=== PATIENT | male | born 1945 | race Hispanic/Latino ===

== ENCOUNTER 2018-03-15 10:59 | Emergency (ER) | payer OTHER ==
--- NOTE | 2018-03-15 14:36 | RAD REPORT ---
EXAM DESCRIPTION: RAD - Chest Pa And Lat (2 Views) - 03/15/2018 2:18 pm CLINICAL HISTORY: Cough, sore throat COMPARISON: None. TECHNIQUE: PA and lateral views of the chest were obtained. FINDINGS: The lungs are clear. No failure or volume overload. Minimal prominence of the lung markin gs believed to be baseline. Heart size is upper normal. No vascular engorgement. No pleural effusion or pneumothorax seen. Minimal thoracic degenerative change present. No acute bone finding. No aortic abnormality. IMPRESSION: No acute cardiopulmonary process.
[2018-03-15 15:06] LABS: Absolute Lymphocytes (CBC) 0.7 K/uL (0.7-4.9); Absolute Monocytes 0.7 K/uL (0.1-1.3); Basophils % 0.6 % (0-1.3); Eosinophils % 1.4 % (0-4.4); Hematocrit 34.3 % (39.6-49.0); Lymphocytes % 8.9 % (15.3-44.8); MCH 28.1 pg (27.0-35.0); MCV 85.4 fL (80-100); MPV 9.3 fL (7.6-11.3); Monocytes % 8.9 % (3.3-12.3); RBC Red Blood Cell Count 4.02 M/uL (4.33-5.43)
[2018-03-15 15:14] LABS: Potassium 4.1 mmol/L (3.5-5.1)
--- NOTE | 2018-03-15 15:45 | ER ---
Nurse's Notes [facility] Name: Candy Keller Age: 72 yrs Sex: Male : 1945 Arrival Date: 03/15/2018 Time: 11:00 Bed 15 Private MD: Out, [facility] Diagnosis: Fever presenting with conditions classified elsewhere;Acute bronchitis Presentation: 03/15 11:25 Presenting complaint: Patient states: " I have had a cough and sore throat since yesterday." Pt denies N/V/D or fever. Transition of care: patient was not received from another setting of care. Onset of symptoms was March 15, 2018. Risk Assessment: Do you want to hurt yourself or someone else? Patient reports no desire to harm self or others. Initial Sepsis Screen: Does the patient meet any 2 criteria? No. Patient's initial sepsis screen is negative. Does the patient have a suspected source of infection? No. Patient's initial sepsis screen is negative. Care prior to arrival: None. 11:25 Method Of Arrival: Ambulatory ph 11:25 Acuity: GARDENIA 4 ph Historical: - Allergies: 11:28 No Known Allergies; ph - PMHx: 11:28 Diabetes - NIDDM; Hyperlipidemia; Hypertension; Irregular heart rate; ph - PSHx: 11:28 None; ph - Immunization history:: Adult Immunizations up to date. - Social history:: Smoking status: Patient/guardian denies using tobacco. - Ebola Screening: : Patient negative for fever greater than or equal to 101.5 degrees Fahrenheit, and additional compatible Ebola Virus Disease symptoms. Screenin:25 Abuse screen: Denies threats or abuse. Nutritional screening: No deficits noted. rb1 Tuberculosis screening: No symptoms or risk factors identified. Fall Risk None identified. Assessment: 13:25 General: Appears in no apparent distress. comfortable, Behavior is calm, cooperative. rb1 General: Denies fever. Pain: Complains of pain in throat Pain currently is 6 out of 10 on a pain scale. Neuro: Level of Consciousness is awake, alert, obeys commands, Oriented to person, place, time, situation. Cardiovascular: Capillary refill < 3 seconds is brisk in bilateral fingers. Respiratory: Reports cough that is Airway is patent Respiratory effort is even, unlabored, Respiratory pattern is regular, symmetrical. GI: No signs and/or symptoms were reported involving the gastrointestinal system. : No signs and/or symptoms were reported regarding the genitourinary system. Derm: Skin is dry, Skin is normal, Skin temperature is warm. 14:25 Reassessment: Patient appears in no apparent distress at this time. No changes from rb1 previously documented assessment. 15:25 Reassessment: Patient appears in no apparent distress at this time. Patient and/or rb1 family updated on plan of care and expected duration. Pain level reassessed. Patient is alert, oriented x 3, equal unlabored respirations, skin warm/dry/pink. at bedside. 16:00 Reassessment: Discharge pending due to IV fluids infusing. rb1 16:47 Reassessment: Patient appears in no apparent distress at this time. Patient and/or rb1 family updated on plan of care and expected duration. Pain level reassessed. Patient is alert, oriented x 3, equal unlabored respirations, skin warm/dry/pink. IV fluids still infusing. 17:05 Reassessment: Patient appears in no apparent distress at this time. No changes from rb1 previously documented assessment. Vital Signs: 11:27 BP 137 / 53; Pulse 74; Resp 18; Temp 98.2; Pulse Ox 97% on R/A; Weight 77.11 kg; ph 13:30 BP 151 / 65; Pulse 63; Resp 17; Pulse Ox 100% ; rb1 14:30 BP 144 / 63; Pulse 59; Resp 17; Pulse Ox 99% on R/A; rb1 15:30 BP 150 / 69; Pulse 62; Resp 18; Pulse Ox 98% on R/A; rb1 16:30 BP 154 / 73; Pulse 62; Resp 17; Pulse Ox 99% on R/A; rb1 17:05 BP 144 / 73; Pulse 70; Resp 17; Pulse Ox 98% on R/A; rb1 ED Course: 11:00 Patient arrived in ED. sb2 11:00 Out, Town is Private Physician. sb2 11:26 Triage completed. ph 11:28 Arm band placed on Patient placed in waiting room, Patient notified of wait time. ph 13:24 Daniel Nieto MD is Attending Physician. gs 13:25 Patient has correct armband on for positive identification. Bed in low position. Call rb1 light in reach. Side rails up X 1. Pulse ox on. NIBP on. 13:40 Inserted saline lock: 22 gauge in right antecubital area, using aseptic technique. rb1 Blood collected. 13:57 Caren Barrett, RN is Primary Nurse. 14:13 X-ray completed. Patient tolerated procedure well. Patient moved back from radiology. jb2 14:14 XRAY Chest Pa And Lat (2 Views) In Process Unspecified. EDMS 17:05 No provider procedures requiring assistance completed. IV discontinued, intact, rb1 bleeding controlled, No redness/swelling at site. Pressure dressing applied. Administered Medications: 16:00 Drug: NS 0.9% 1000 ml Route: IV; Rate: 1 bolus; Site: right antecubital; rb1 17:05 Follow up: IV Status: Completed infusion rb1 Outcome: 15:44 Discharge ordered by . 17:05 Discharged to home ambulatory, with family. rb1 17:05 Condition: stable 17:05 Discharge instructions given to patient, Instructed on discharge instructions, follow up and referral plans. medication usage, Demonstrated understanding of instructions, follow-up care, medications, Prescriptions given X 2. 17:15 Patient left the ED. rb1 Signatures: Dispatcher [employer] EDSC Valetnino Jacinto jb2 Caren Barrett, Soni Pierre RN, RN RN Juana Valle RN RN rb1 Daniel Nieto MD MD Niyah Meyers sb2
--- NOTE | 2018-03-15 15:45 | EDPHYS ---
Physician Documentation [facility] Name: Candy Keller Age: 72 yrs Sex: Male : 1945 Arrival Date: 03/15/2018 Time: 11:00 Bed 15 Private MD: Out, [facility] ED Physician Daniel Nieto HPI: 03/15 16:13 This 72 yrs old Male presents to ER via Ambulatory with complaints of Flu gs Symptoms. 16:13 Onset: The symptoms/episode began/occurred 2 day(s) ago. Modifying factors: there are gs no obvious modifying factors. Associated signs and symptoms: Pertinent positives: chills, cough, myalgias. Severity of symptoms: At their worst the symptoms were moderate in the emergency department the symptoms are unchanged. The patient has experienced similar episodes in the past, a few times. The patient has not recently seen a physician. Historical: - Allergies: 11:28 No Known Allergies; ph - PMHx: 11:28 Diabetes - NIDDM; Hyperlipidemia; Hypertension; Irregular heart rate; ph - PSHx: :28 None; ph - Immunization history:: Adult Immunizations up to date. - Social history:: Smoking status: Patient/guardian denies using tobacco. - Ebola Screening: : Patient negative for fever greater than or equal to 101.5 degrees Fahrenheit, and additional compatible Ebola Virus Disease symptoms. ROS: 16:13 All other systems are negative. gs Exam: 16:13 Head/Face: Normocephalic, atraumatic. Eyes: Pupils equal round and reactive to light, gs extra-ocular motions intact. Lids and lashes normal. Conjunctiva and sclera are non-icteric and not injected. Cornea within normal limits. Periorbital areas with no swelling, redness, or edema. ENT: Nares patent. No nasal discharge, no septal abnormalities noted. Tympanic membranes are normal and external auditory canals are clear. Oropharynx with no redness, swelling, or masses, exudates, or evidence of obstruction, uvula midline. Mucous membranes moist. Neck: Trachea midline, no thyromegaly or masses palpated, and no cervical lymphadenopathy. Supple, full range of motion without nuchal rigidity, or vertebral point tenderness. No Meningismus. Chest/axilla: Normal chest wall appearance and motion. Nontender with no deformity. No lesions are appreciated. Cardiovascular: Regular rate and rhythm with a normal S1 and S2. No gallops, murmurs, or rubs. Normal PMI, no JVD. No pulse deficits. Abdomen/GI: Soft, non-tender, with normal bowel sounds. No distension or tympany. No guarding or rebound. No evidence of tenderness throughout. Back: No spinal tenderness. No costovertebral tenderness. Full range of motion. Skin: Warm, dry with normal turgor. Normal color with no rashes, no lesions, and no evidence of cellulitis. MS/ Extremity: Pulses equal, no cyanosis. Neurovascular intact. Full, normal range of motion. Neuro: Awake and alert, GCS 15, oriented to person, place, time, and situation. Cranial nerves II-XII grossly intact. Motor strength 5/5 in all extremities. Sensory grossly intact. Cerebellar exam normal. Normal gait. 16:13 Constitutional: The patient appears in no acute distress, alert, awake, non-toxic. 16:13 Respiratory: the patient does not display signs of respiratory distress, Respirations: normal, Breath sounds: decreased breath sounds, that are mild, are located in both bases. Vital Signs: 11:27 BP 137 / 53; Pulse 74; Resp 18; Temp 98.2; Pulse Ox 97% on R/A; Weight 77.11 kg; ph 13:30 BP 151 / 65; Pulse 63; Resp 17; Pulse Ox 100% ; rb1 14:30 BP 144 / 63; Pulse 59; Resp 17; Pulse Ox 99% on R/A; rb1 15:30 BP 150 / 69; Pulse 62; Resp 18; Pulse Ox 98% on R/A; rb1 16:30 BP 154 / 73; Pulse 62; Resp 17; Pulse Ox 99% on R/A; rb1 17:05 BP 144 / 73; Pulse 70; Resp 17; Pulse Ox 98% on R/A; rb1 MDM: 13:55 Patient medically screened. gs 16:13 Differential diagnosis: viral Infection, bacterial infection, URI, pneumonia. Data gs reviewed: vital signs, nurses notes. Data reviewed: lab test result(s), radiologic studies. Counseling: I had a detailed discussion with the patient and/or guardian regarding: the historical points, exam findings, and any diagnostic results supporting the discharge/admit diagnosis, lab results, radiology results, the need for outpatient follow up. Response to treatment: the patient's symptoms have markedly improved after treatment, and as a result, I will discharge patient. 03/15 13:57 Order name: Flu; Complete Time: 15:05 03/15 13:57 Order name: CBC with Diff; Complete Time: 15:31 03/15 13:57 Order name: XRAY Chest Pa And Lat (2 Views); Complete Time: 15:05 03/15 13:57 Order name: Basic Metabolic Panel; Complete Time: 15:31 Administered Medications: 16:00 Drug: NS 0.9% 1000 ml Route: IV; Rate: 1 bolus; Site: right antecubital; rb1 17:05 Follow up: IV Status: Completed infusion rb1 Disposition: 03/15/18 15:44 Discharged to Home. Impression: Fever presenting with conditions classified elsewhere, Acute bronchitis. - Condition is Stable. - Discharge Instructions: Acute Bronchitis, Adult, Fever, Adult. - Prescriptions for Albuterol Sulfate 90 mcg/actuation - inhale 1-2 puff by INHALATION route every 4-6 hours; 1 Inhaler. Guaifenesin AC 10- 100 mg/5 mL Oral Liquid - take 10 milliliters by ORAL route every 4 hours As needed; 120 milliliter. - Medication Reconciliation Form, Thank You Letter, Antibiotic Education, Prescription Opioid Use form. - Follow up: Private Physician; When: 2 - 3 days; Reason: Re-evaluation by your physician. Signatures: Dispatcher [employer] Soni Eldridge RN RN ph Barber, Rebecca, RN RN rb1 Daniel Nieto MD MD Corrections: (The following items were deleted from the chart) 17:15 15:44 03/15/2018 15:44 Discharged to Home. Impression: Fever presenting with conditions rb1 classified elsewhere; Acute bronchitis. Condition is Stable. Forms are Medication Reconciliation Form, Thank You Letter, Antibiotic Education, Prescription Opioid Use. Follow up: Private Physician; When: 2 - 3 days; Reason: Re-evaluation by your physician.
[2018-03-15] MEDS ORDERED: NA CHLORIDE 0.9% 1,000 ML ONE (16:05)
== END 2018-03-15 17:15 | disposition home or self-care (01) ==
LOC: ER 10:59
DX: J20.9 Acute bronchitis, unspecified (principal); I10 Essential (primary) hypertension
CPT/HCPCS: 36415; 71046; 80048; 85025; 87804 ×2; 96360; 99284; J7030

== ENCOUNTER 2019-07-19 12:07 | Observation (INO) | payer OTHER ==
--- OUTSIDE RECORDS SUMMARY | 2019-07-19 12:09 | XMS REPORT ---
:1945 [facility] Address [address] [place] [address] Dr. Blanca [address] [place] [id number] Care Team Providers Name Role Phone Unavailable Unavailable Unavailable Problems This patient has no known problems. Allergies, Adverse Reactions, Alerts This patient has no known allergies or adverse reactions. Medications This patient has no known medications. Encounters Start End Encounter Admission Attending Care Care Encounter Date/Time Date/Time Type Type Clinicians Facility Department ID 2019-02-09 2019-02-09 Outpatient FANNJesús [facility] [id number] 14:43:00 14:43:00
--- OUTSIDE RECORDS SUMMARY | 2019-07-19 12:09 | XMS REPORT | Summary of Care ---
:1945 Author Name Stacy Byers M.A. Address [place] Physicians Unavailable , Care Team Providers Name Role Phone TY GOYAL M.D. Unavailable Unavailable HANNAH MONREAL, ELSY JEAN BAPTISTE Unavailable Unavailable Unavailable Unavailable Unavailable Functional Status Name Dates Details Functional status health issues are not documented Status: Name Dates Details Cognitive status health issues are not documented Status: Problems Name Dates Details Arthralgia of left knee (719.46, M25.562) Status: Active Osteoarthritis of spine with radiculopathy, lumbar region (721.3, M47.26) Status: Active Chronic pelvic pain in male (789.09, R10.2) Status: Active T12 compression fracture (805.2, S22.080A) Status: Active Medications Name Dates Details Meloxicam 15 MG Oral Tablet TAKE 1 TABLET DAILY WITH FOOD. Quantity: 1 Refills: 5 TY GOYAL M.D. Start : 02-Dec-2017 Active 30 Tablet Bottle Gabapentin 300 MG Oral Capsule TAKE 1 CAPSULE 3 TIMES DAILY Quantity: 90 Refills: 3 TY GOYAL M.D. Start : 01-Apr-2018 Active Venlafaxine HCl ER 37.5 MG Oral Capsule Extended Release 24 Hour TAKE 1 CAPSULE AT BEDTIME FOR 2 WEEKS ; 2 CAPSULES AT BEDTIME 2 WEEKS Quantity: 42 Refills: 0 TY GOYAL M.D. Start : 17-Jun-2018 Active Allergies and Adverse Reactions Name Dates Details Allergy history not documented Status: Procedures Procedure Dates Details MRI Pelvis without contrast [id number] Date: 17-Jun-2018 Immunization Name Dates Details Immunizations not documented Social History Name Dates Details Unknown if ever smoked Vital Signs Date Test Result Details No Known Vitals to report Results Date Description Value Details Results not documented Plan of Care Name Dates Details Planned Observations MRI Pelvis without contrast [id number] On: 17-Jun-2018 Intent Planned Goals not documented Interventions Provided Medication ChangesVenlafaxine HCl ER 37.5 MG Oral Capsule Extended Release 24 Hour - StartSuppliesBrace; To Be Done: 16 Jun 2018PlanPatient Education/ Instructions: Reassurance Counseling Provided. MRI report reviewed and finding discussed with patient and family. Orders: Medications:. D/C Gabapentin and add Effexor. MRI PELVIS MEDICALLY NECESSARY DUE TO RADICULAR SYMPTOMS AND HX OF PELVIC FX. Rx for new lumbar corset given. Follow Up: Return to the clinic after imaging study completed or as needed. Instructions Name Dates Details Instructions not documented Encounters Appointment; TY GOYAL M.D. On: 02-Dec-2017 10:00 Encounter Diagnosis: Problem not documented Appointment; TY GOYAL M.D. On: 01-Apr-2018 16:30 Encounter Diagnosis: Problem not documented Appointment; TY GOYAL M.D. On: 28-Apr-2018 15:15 Encounter Diagnosis: Problem not documented Appointment; TY GOYAL M.D. On: 16-Jun-2018 10:15 Encounter Diagnosis: Problem not documented
[2019-07-19 12:40] LABS: Absolute Lymphocytes (CBC) 1.1 K/uL (0.7-4.9); Basophils % 0.8 % (0-1.3); Hematocrit 36.5 % (39.6-49.0); Lymphocytes % 17.5 % (15.3-44.8); MPV 8.9 fL (7.6-11.3)
--- NOTE | 2019-07-19 12:40 | RAD REPORT ---
EXAM DESCRIPTION: RAD - Chest Single View - 07/19/2019 12:34 pm CLINICAL HISTORY: CHEST PAIN Chest pain. COMPARISON: Chest Pa And Lat (2 Views) dated 03/15/2018 FINDINGS: Portable technique limits examination quality. The lungs are underinflated resulting in vascular crowding. The heart is normal in size. No displaced fractures. IMPRESSION: No acute intrathoracic process suspected.
[2019-07-19 12:41] LABS: Protime INR 1.29
[2019-07-19 12:55] LABS: ALT/SGPT 16 U/L (12-78); AST/SGOT 15 U/L (15-37); Albumin 3.8 g/dL (3.4-5.0); Alkaline Phosphatase 77 U/L (45-117); BUN Blood Urea Nitrogen 40 mg/dL (7-18); Bicarbonate 25 mmol/L (21-32); Bilirubin Direct 0.1 mg/dL (0-0.2); Bilirubin Total 0.3 mg/dL (0.2-1.0); Glucose Level 234 mg/dL (74-106); NT PRO-BNP 566 pg/mL (<125); Potassium 4.8 mmol/L (3.5-5.1); Protein, Total 7.3 g/dL (6.4-8.2); Sodium Level 138 mmol/L (136-145); Troponin (Emerg Dept Use Only) < 0.02 ng/mL (0.0-0.045)
[2019-07-19 12:58] LABS: Magnesium 1.4 mg/dL (1.8-2.4)
--- NOTE | 2019-07-19 13:14 | ER ---
Nurse's Notes [facility] Name: Candy Keller Age: 73 yrs Sex: Male : 1945 Arrival Date: 07/19/2019 Time: 12:08 Bed 15 Private MD: Diagnosis: Chest pain, unspecified;Hypomagnesemia Presentation: 07/19 12:15 Presenting complaint: Patient states: Non radiating Sharp pain in the L side of the ca1 chest under the L breast that comes and goes and last for seconds which started yesterday. Denies lightheadedness, dizziness, SOB, nausea. Transition of care: patient was not received from another setting of care. Onset of symptoms was July 18, 2019. Risk Assessment: Do you want to hurt yourself or someone else? Patient reports no desire to harm self or others. Initial Sepsis Screen: Does the patient meet any 2 criteria? No. Patient's initial sepsis screen is negative. Does the patient have a suspected source of infection? No. Patient's initial sepsis screen is negative. Care prior to arrival: None. 12:15 Method Of Arrival: Wheelchair ca1 12:15 Acuity: GARDENIA 3 ca1 Historical: - Allergies: 12:31 No Known Allergies; ca1 - Home Meds: 12:49 metformin 1,000 mg Oral tab 1 tab 2 times per day [Active]; flecainide 100 mg oral tab ca1 1 tab every 12 hours [Active]; citalopram 20 mg tab 1 tab once daily [Active]; rosuvastatin 5 mg oral tab 1 tab once daily [Active]; lisinopril HCTZ 20-25mg 1 tab daily [Active]; Eliquis 5 mg oral tab 1 tab 2 times per day [Active]; levothyroxine 150 mcg tab 1 tab once daily [Active]; pioglitazone 30 mg oral tab 1 tab once daily [Active]; FeroSul 325 mg (65 mg iron) oral tab daily [Active]; Combigan 0.2-0.5 % ophthalmic drop 1 drop for R eye [Active]; Travatan Z 0.004 % ophthalmic drop 1 drop once daily for each eye once a day [Active]; - PMHx: 12:31 Diabetes - NIDDM; Hyperlipidemia; Hypertension; Irregular heart rate; ca1 - PSHx: 12:31 None; ca1 - Immunization history:: Adult Immunizations up to date, Pneumococcal vaccine is up to date, Flu vaccine is not up to date. - Social history:: Smoking status: Patient/guardian denies using tobacco. - Ebola Screening: : Patient negative for fever greater than or equal to 101.5 degrees Fahrenheit, and additional compatible Ebola Virus Disease symptoms Patient denies exposure to infectious person Patient denies travel to an Ebola-affected area in the 21 days before illness onset No symptoms or risks identified at this time. Screenin:32 Abuse screen: Denies threats or abuse. Denies injuries from another. Nutritional ca1 screening: No deficits noted. Tuberculosis screening: No symptoms or risk factors identified. Fall Risk IV access (20 points). Assessment: 12:32 General: Appears in no apparent distress. comfortable, Behavior is calm, cooperative, ca1 appropriate for age. Pain: Complains of pain in left breast Pain does not radiate. Pain currently is 0 out of 10 on a pain scale. at worst was 10 out of 10 on a pain scale. Quality of pain is described as sharp, Pain began 1 day ago. Is intermittent, Also complains of no other associated symptoms. Neuro: Level of Consciousness is awake, alert, obeys commands, Oriented to person, place, time, situation, Appropriate for age. Cardiovascular: Heart tones S1 S2 present Capillary refill < 3 seconds Patient's skin is warm and dry. Rhythm is sinus rhythm. Respiratory: Airway is patent Respiratory effort is even, unlabored, Respiratory pattern is regular, symmetrical, Breath sounds are clear bilaterally. GI: Abdomen is flat, non-distended, Bowel sounds present X 4 quads. Abd is soft and non tender X 4 quads. : No deficits noted. No signs and/or symptoms were reported regarding the genitourinary system. EENT: No signs and/or symptoms were reported regarding the EENT system. Derm: Skin is intact, is healthy with good turgor, Skin is pink, warm \T\ dry. Musculoskeletal: Circulation, motion, and sensation intact. Capillary refill < 3 seconds, Range of motion: intact in all extremities. 13:26 Reassessment: Patient appears in no apparent distress at this time. Patient and/or ca1 family updated on plan of care and expected duration. Pain level reassessed. Patient is alert, oriented x 3, equal unlabored respirations, skin warm/dry/pink. 13:50 Reassessment: Called for report. Nurse will call back. ca1 14:19 Reassessment: Patient appears in no apparent distress at this time. Patient is alert, ca1 oriented x 3, equal unlabored respirations, skin warm/dry/pink. Dr. Mcdonnell at bedside. Vital Signs: 12:31 BP 167 / 65; Pulse 82; Resp 16 S; Pulse Ox 100% on R/A; Weight 79.38 kg (R); Height 5 ca1 ft. 5 in. (165.10 cm) (R); Pain 10/10; 12:42 Temp 98.7(O); ca1 13:15 BP 149 / 67; Pulse 70; Resp 16 S; Pulse Ox 99% on R/A; ca1 14:00 BP 141 / 60; Pulse 65; Resp 17 S; Pulse Ox 99% on R/A; ca1 12:31 Body Mass Index 29.12 (79.38 kg, 165.10 cm) ca1 ED Course: 12:08 Patient arrived in ED. rg4 12:13 Alistair Oseguera PA is PHCP. jmm 12:13 Lucio Wolfe MD is Attending Physician. jmm 12:14 Tayla Braxton, MARILYN is Primary Nurse. ca1 12:15 Arm band placed on right wrist. EKG completed in triage. Results shown to MD. ca1 12:26 No provider procedures requiring assistance completed. Initial lab(s) drawn, by mo, ca1 sent to lab. Inserted saline lock: 22 gauge in right forearm, using aseptic technique. Blood collected. Patient maintains SpO2 saturation greater than 95% on room air. 12:31 Triage completed. ca1 12:32 Patient has correct armband on for positive identification. Placed in gown. Bed in low ca1 position. Call light in reach. Side rails up X 1. potline monitor on. Pulse ox on. NIBP on. Warm blanket given. 12:34 XRAY Chest (1 view) In Process Unspecified. EDMS 12:34 EKG done, by pharmacy technician instructor. reviewed by Alistair CHAIREZ. at1 13:13 Da Mcdonnell MD is Hospitalizing Provider. jmm 14:28 Patient admitted, IV remains in place. ca1 Administered Medications: 13:17 Drug: Magnesium Sulfate 2 grams Route: IVPB; Infused Over: 2 hrs; Site: right forearm; ca1 13:56 Follow up: IV Status: Infusion continued upon admission ca1 13:56 Drug: Aspirin Chewable Tablet 324 mg Route: PO; ca1 14:21 Follow up: Response: No adverse reaction; Pain is decreased ca1 14:21 Not Given (Patient Refused): morphine 2 mg IVP once; RASS on ADMIN: Combtv4, Very ca1 Agttd3, Agttd2, Rstlss1, AlertClm0, Drwsy-1, Lt Sdtn-2, Mod Sdtn-3, Dp Sdtn-4, UnArsble-5 Outcome: 13:13 Decision to Hospitalize by Provider. rosetta 14:28 Admitted to Tele accompanied by tech, via wheelchair, room 406, with chart, Report ca1 called to Sowmya Poole RN 14:29 Condition: stable ca1 14:29 Instructed on the need for admit. 14:56 Patient left the ED. ca1 Signatures: Dispatcher [employer] EDMS Alistair Oseguera PA PA jmm Gonzales, Amanda, fire range technician EKG Ash1 Valerie Burgess rg4 Tayla Braxton, RN RN ca1
--- NOTE | 2019-07-19 13:14 | EDPHYS ---
Physician Documentation [facility] Name: Candy Keller Age: 73 yrs Sex: Male : 1945 Arrival Date: 07/19/2019 Time: 12:08 Bed 15 Private MD: ED Physician Lucio Wolfe HPI: 07/19 12:14 This 73 yrs old Male presents to ER via Wheelchair with complaints of Chest jmm Pain. 12:14 The patient or guardian reports chest pain that is located primarily in the substernal jmm area. Onset: gradually, 1 day(s) ago. The pain does not radiate. Associated signs and symptoms: Pertinent negatives: shortness of breath. The chest pain is described as stabbing. Duration: The patient or guardian reports multiple episodes, that are intermittent. Modifying factors: The symptoms are alleviated by nothing. the symptoms are aggravated by nothing. This is a 73 year old male with a history of DM, HLP, HTN, atrial fibrillation that presents to the ED with complaints of intermittent chest pain beginning yesterday. episodes will last approx 1 to 2 minutes. does not radiate. Pain is not exertional. . Historical: - Allergies: 12:31 No Known Allergies; ca1 - Home Meds: 12:49 metformin 1,000 mg Oral tab 1 tab 2 times per day [Active]; flecainide 100 mg oral tab ca1 1 tab every 12 hours [Active]; citalopram 20 mg tab 1 tab once daily [Active]; rosuvastatin 5 mg oral tab 1 tab once daily [Active]; lisinopril HCTZ 20-25mg 1 tab daily [Active]; Eliquis 5 mg oral tab 1 tab 2 times per day [Active]; levothyroxine 150 mcg tab 1 tab once daily [Active]; pioglitazone 30 mg oral tab 1 tab once daily [Active]; FeroSul 325 mg (65 mg iron) oral tab daily [Active]; Combigan 0.2-0.5 % ophthalmic drop 1 drop for R eye [Active]; Travatan Z 0.004 % ophthalmic drop 1 drop once daily for each eye once a day [Active]; - PMHx: 12:31 Diabetes - NIDDM; Hyperlipidemia; Hypertension; Irregular heart rate; ca1 - PSHx: 12:31 None; ca1 - Immunization history:: Adult Immunizations up to date, Pneumococcal vaccine is up to date, Flu vaccine is not up to date. - Social history:: Smoking status: Patient/guardian denies using tobacco. - Ebola Screening: : Patient negative for fever greater than or equal to 101.5 degrees Fahrenheit, and additional compatible Ebola Virus Disease symptoms Patient denies exposure to infectious person Patient denies travel to an Ebola-affected area in the 21 days before illness onset No symptoms or risks identified at this time. ROS: 12:14 Constitutional: Negative for fever, chills, and weight loss. jmm 12:14 Respiratory: Negative for shortness of breath, cough, wheezing, and pleuritic chest pain. 12:14 Cardiovascular: Positive for chest pain. 12:14 All other systems are negative. Exam: 12:14 Constitutional: This is a well developed, well nourished patient who is awake, alert, jmm and in no acute distress. Head/Face: atraumatic. Eyes: EOMI, no conjunctival erythema appreciated ENT: Moist Mucus Membranes Neck: Trachea midline, Supple Chest/axilla: Normal chest wall appearance and motion. Cardiovascular: Regular rate and rhythm. No edema appreciated Respiratory: Normal respirations, no respiratory distress appreciated Abdomen/GI: Non distended, soft Back: Normal ROM Skin: General appearance color normal MS/ Extremity: Moves all extremities, no obvious deformities appreciated, no edema noted to the lower extremities Neuro: Awake and alert, normal gait Psych: Behavior is normal, Mood is normal, Patient is cooperative and pleasant 12:14 Cardiovascular: Rate: normal, Rhythm: regular, Pulses: no pulse deficits are appreciated. Vital Signs: 12:31 BP 167 / 65; Pulse 82; Resp 16 S; Pulse Ox 100% on R/A; Weight 79.38 kg (R); Height 5 ca1 ft. 5 in. (165.10 cm) (R); Pain 10/10; 12:42 Temp 98.7(O); ca1 13:15 BP 149 / 67; Pulse 70; Resp 16 S; Pulse Ox 99% on R/A; ca1 14:00 BP 141 / 60; Pulse 65; Resp 17 S; Pulse Ox 99% on R/A; ca1 12:31 Body Mass Index 29.12 (79.38 kg, 165.10 cm) ca1 MDM: 12:14 The patient was given aspirin in the Emergency Department. [facility] 12:34 Patient medically screened. [facility] 13:06 Data reviewed: vital signs, nurses notes. Counseling: I had a detailed discussion with [facility] the patient and/or guardian regarding: the historical points, exam findings, and any diagnostic results supporting the discharge/admit diagnosis, lab results, the need for further work-up and treatment in the hospital. 13:20 ED course: I discussed the patient with Dr. Mcdonnell whom accepted admission. . [facility] 07/19 12:14 Order name: Basic Metabolic Panel; Complete Time: 13:02 [facility] 07/19 12:14 Order name: CBC with Diff; Complete Time: 12:51 [facility] 07/19 12:14 Order name: LFT's; Complete Time: 13:02 [facility] 07/19 12:14 Order name: Magnesium; Complete Time: 13:02 [facility] 07/19 12:14 Order name: NT PRO-BNP; Complete Time: 13:02 [facility] 07/19 12:14 Order name: PT-INR; Complete Time: 12:51 [facility] 07/19 12:14 Order name: Troponin (emerg Dept Use Only); Complete Time: 13:02 [facility] 07/19 12:14 Order name: XRAY Chest (1 view); Complete Time: 12:41 [facility] 07/19 12:14 Order name: EKG; Complete Time: 12:15 [facility] 07/19 12:14 Order name: Cardiac monitoring; Complete Time: 12:28 [facility] 07/19 12:14 Order name: EKG - Nurse/Tech; Complete Time: 12:28 [facility] 07/19 12:14 Order name: IV Saline Lock; Complete Time: 12:28 [facility] 07/19 12:14 Order name: Labs collected and sent; Complete Time: 12:28 [facility] 07/19 12:14 Order name: O2 Per Protocol; Complete Time: 12:28 [facility] 07/19 12:14 Order name: O2 Sat Monitoring; Complete Time: 12:28 [facility] Administered Medications: 13:17 Drug: Magnesium Sulfate 2 grams Route: IVPB; Infused Over: 2 hrs; Site: right forearm; ca1 13:56 Follow up: IV Status: Infusion continued upon admission ca1 13:56 Drug: Aspirin Chewable Tablet 324 mg Route: PO; ca1 14:21 Follow up: Response: No adverse reaction; Pain is decreased ca1 14:21 Not Given (Patient Refused): morphine 2 mg IVP once; RASS on ADMIN: Combtv4, Very ca1 Agttd3, Agttd2, Rstlss1, AlertClm0, Drwsy-1, Lt Sdtn-2, Mod Sdtn-3, Dp Sdtn-4, UnArsble-5 Disposition: 15:10 Co-signature as Attending Physician, Lucio Wolfe MD I agree with the assessment and kdr plan of care. Disposition: 07/19/19 13:13 Hospitalization ordered by Da Mcdonnell for Observation. Preliminary diagnosis are Chest pain, unspecified, Hypomagnesemia. - Bed requested for Telemetry/MedSurg (observation). - Status is Observation. ca1 - Condition is Stable. - Problem is new. - Symptoms are unchanged. UTI on Admission? No Signatures: Dispatcher [employer] EDMS Rhea Stone Kevin, MD MD [facility] Alistair Oseguera PA PA phillipm Tayla Braxton RN RN ca1 Corrections: (The following items were deleted from the chart) 13:14 13:13 Hospitalization Ordered by Da Mcdonnell MD for Observation. Preliminary diagnosis jmm is Chest pain, unspecified. Bed requested for Telemetry/MedSurg (observation). Status is Observation. Condition is Stable. Problem is new. Symptoms are unchanged. UTI on Admission? No. [facility] 13:43 13:14 07/19/2019 13:13 Hospitalization Ordered by Da Mcdonnell MD for Observation. bd Preliminary diagnosis is Chest pain, unspecified; Hypomagnesemia. Bed requested for Telemetry/MedSurg (observation). Status is Observation. Condition is Stable. Problem is new. Symptoms are unchanged. UTI on Admission? No. [facility] 14:56 13:43 07/19/2019 13:13 Hospitalization Ordered by Da Mcdonnell MD for Observation. ca1 Preliminary diagnosis is Chest pain, unspecified; Hypomagnesemia. Bed requested for Telemetry/MedSurg (observation). Status is Observation. Condition is Stable. Problem is new. Symptoms are unchanged. UTI on Admission? No. bd
[2019-07-19] MEDS ORDERED: Magnesium Sulfate 2gm IVPB 2 G/50 ML BAG IV ONE (13:15)
[2019-07-19] MEDS ORDERED: ASPIRIN 81 MG CHEWABLE TABLET ONE (13:55)
[2019-07-19] MEDS ORDERED: MORPHINE 2 MG/ML SYR ONE (13:56)
--- NOTE | 2019-07-19 14:38 | EKG ---
Test Date: 2019-07-19 Test Time: 12:24:24 Screen Printing Supervisor: REMINGTON MEASUREMENT RESULTS: Intervals: Rate: 76 ID: [id number] QRSD: 148 QT: 426 QTc: 479 [place]: P: 46 ID: [id number] QRS: 78 T: 19 INTERPRETIVE STATEMENTS: Sinus rhythm with 1st degree AV block Right bundle branch block Abnormal ECG No previous ECG available for comparison Electronically Signed On 07-19-19 14:38:17 SKEIN STRAIGHTENER by Devon Dunn
[2019-07-19] MEDS ORDERED: NITROGLYCERIN 0.4 MG/TAB SL PRN (14:51)
[2019-07-19] MEDS ORDERED: ACETAMINOPHEN 500 MG TAB PO PRN (14:51)
[2019-07-19] MEDS ORDERED: MORPHINE 2 MG/ML SYR IV PRN (14:51)
--- NOTE | 2019-07-19 15:43 | ECHO ---
HEIGHT: 6 ft 2 in WEIGHT: 260 lb 0 oz DATE OF STUDY: 07/19/[address]: Da Mcdonnell MD 2-DIMENSIONAL: YES M.MODE: YES DOPPLER: YES COLOR FLOW: YES TDS: NO PORTABLE: NO DEFINITY: NO BUBBLE STUDY: NO DIAGNOSIS: CHEST PAIN, ATRIAL FIBRILLATION CARDIAC HISTORY: CATHERIZATION: NO SURGERY: NO PROSTHETIC VALVE: NO PACEMAKER: NO MEASUREMENTS (cm) DIASTOLIC (NORMALS) SYSTOLIC (NORMALS) IVSd 1.0 (0.6-1.2) LA Diam 3.1 (1.9-4.0) LVEF 61% LVIDd 4.7 (3.5-5.7) LVIDs 3.1 (2.0-3.5) %FS 33% LVPWd 1.0 (0.6-1.2) Ao Diam 2.8 (2.0-3.7) 2 DIMENSIONAL ASSESSMENT: RIGHT ATRIUM: MILDLY DILATED LEFT ATRIUM: NORMAL RIGHT VENTRICLE: NORMAL LEFT VENTRICLE: NORMAL TRICUSPID VALVE: NORMAL MITRAL VALVE: NORMAL PULMONIC VALVE: NORMAL AORTIC VALVE: NORMAL PERICARDIAL EFFUSION: NONE AORTIC ROOT: NORMAL LEFT VENTRICULAR WALL MOTION: NORMAL. DOPPLER/COLOR FLOW: MILD TRICUSPID REGURGITATION, ESTIMATED RIGHT VENTRICULAR SYSTOLIC PRESSURE 45mmHg (MILD PULMONARY HYPERTENSION.) COMMENTS: NORMAL LEFT VENTRICULAR EJECTION FRACTION. DILATED RIGHT ATRIUM. MILD TRICUSPID REGURGITATION. MILD PULMONARY HYPERTENSION. TECHNOLOGIST: SHELBIE ORTEZ
[2019-07-19 15:48] VITALS: BMI 27.0
[2019-07-19 16:19] LABS: Urine Appearance CLEAR; Urine Bilirubin NEGATIVE (NEG); Urine Blood NEGATIVE (NEG); Urine Color YELLOW; Urine Glucose NEGATIVE (NEG); Urine Protein NEGATIVE (NEG); Urine Specific Gravity 1.015 (1.005-1.030); Urine Urobilinogen 0.2 mg/dL (0.2-1.0); Urine pH 5.5 (5.0-7.0)
[2019-07-19 16:20] LABS: Urine Microscopic Reflex NO UMIC
[2019-07-19] MEDS: INSULIN -REGULAR HUMAN 50 UNIT/0.5 ML ML SQ SCH ×2 (17:00→21:40)
[2019-07-19] MEDS ORDERED: INFLUENZA VACCINE (for 3y+) 0.5 ML DOSE IMVAC ONE (18:00)
[2019-07-19] MEDS ORDERED: PNEUMOCOCCAL VACCINE 0.5 ML IMVAC ONE (18:00)
[2019-07-19] MEDS ORDERED: ATORVASTATIN 40 MG TAB PO SCH (21:00)
[2019-07-19] MEDS: APIXABAN 5 MG TABLET PO SCH (21:41)
[2019-07-19] MEDS: METOPROLOL TAR 25 MG TAB PO SCH (21:41)
[2019-07-19] MEDS: FLECAINIDE 100 MG TAB PO SCH (21:44)
--- NOTE | 2019-07-20 00:26 | HP ---
Date of Admission: 07/19/2019 Chief Complaint: Chest pain. Consultants: Dr. Dunn with Cardiology. Code Status: Full. History Of Present Illness: Patient is a 73-year-old male with past medical history of diabetes cm itus type 2, hyperlipidemia, hypertension, atrial fibrillation on Eliquis, who was in his usual state of health until day prior to admission when the patient had sudden onset of left-sided chest pain. Patient denies any associated nausea, vomiting, diaphoresis. No fevers, chills. Patient denies any previous history of similar chest pain. His symptoms are constant, moderate, progressively worsening . Did not take any medications to alleviate his pain, worse with deep breaths. Patient came into [facility] ER for further evaluation. His initial workup showed negative troponin level. White count was nor mal. He did have magnesium level of 1.4 and creatinine was elevated at 1.37. The patient's EKG did not show any acute ST elevation. He was then referred for admission. When seen in the ER, he was aw amilcar, alert, and oriented x3, in some mild distress. Past Medical History: Diabetes mellitus type 2, [id number], hyperlipidemia, hypertension, atrial fibrillation, on anticoagulation. Surgical History: None. Allergies: NO KNOWN DRUG ALLERGIES. Medications: List reviewed. Social History: Patient smoked 40 years ago for only several years. No alcohol use or illicit drug use. Family History: Diabetes runs in the family. Mom had diabetes. He denies any premature coronary ar nito disease. Sister of heart disease. Review of Systems: Ten-point system reviewed, negative except as per HPI. Physical Examination: Vital Signs: Temperature 98.7, heart rate 82, blood pressure 167/65, respirations 16, O2 100% on rylan m air. General: Awake, alert, and oriented x3. Elderly male, in some mild distress. HEENT: Normocephalic, atraumatic. PERRLA. EOMI. Dry mucous membranes. Oropharynx is clear. Poor dentition. Conjunctivae are anicteric. Neck: Supple. No JVD. Trachea midline. CV: S1, S2, irregularly irregular. Peripheral pulses present. Respiratory: Moving air well bilaterally. No wheezing or stridor. No use of accessory muscles. Gastrointestinal: Abdomen is soft, nontender, nondistended. Positive bowel sounds. No guarding or rigidity. Extremities: No clubbing, cyanosis, or pedal edema. No calf tenderness. Neuro: Cranial nerves 2 through 12 intact grossly. No focal neurological deficit. Speech is normal . Skin: No rashes. Normal skin turgor. Psych: Mood is okay. Affect is full. Insight and judgment are good. Laboratory Data: Sodium 138, potassium 4.8, chloride 107, CO2 of 25, BUN 40, creatinine 1.37, glucos e 234, calcium 9.3, magnesium 1.4, AST 15, ALT 16, troponin less than 0.02. BNP 566. Albumin 3.8. INR 1.29. WBC 6.1, H and H 12.2 and 36.5, platelets 205. Chest x-ray shows no acute intrathoracic process, personally reviewed. EKG shows sinus rhythm with f irst-degree AV block, rate of 76, right bundle branch block. Assessment: A 73-year-old male with, 1.Chest pain. Patient has multiple risk factors including diabetes, hypertension, hyperlipidemia, a ge over 70, has high HEART score. We will admit to rule out acute coronary syndrome. We will obtain serial cardiac enzymes and EKG. We will obtain echocardiogram. Consult Cardiology. We will start on chest pain guidelines. Initial cardiac enzymes are negative. 2.Atrial fibrillation, paroxysmal, currently in sinus rhythm. We will continue with Eliquis and the patient is on antiarrhythmic. 3.Hypomagnesemia, we will replace and monitor. 4.Pleuritic chest pain. Patient does report worsening of his pain with deep breaths, possible peric arditis or pericardial effusion. We will obtain echocardiogram. Obtain D-dimer, rule out to workup for possible pulmonary embolism, however patient is on blood thinners. 5.Essential hypertension, not well controlled. We will resume home medications as appropriate. 6.Mixed hyperlipidemia. Continue statin. 7.Diabetes mellitus type 2 with hyperglycemia, non-insulin requiring. We will continue with sliding scale insulin. Resume home medications. Hold metformin in case of possible cardiac workup includin g catheterization requiring contrast. 8.Major depressive disorder. Continue with SSRI. 9.Renal insufficiency. Creatinine is 1.37. Creatinine was 1.4 in 2018, may be chronic. We will co ntinue to monitor. Plan: Admit patient to Med-Surg, place as observation. SA/MODL Voice ID: [id number]
[2019-07-20 04:33] LABS: Absolute Lymphocytes (CBC) 1.4 K/uL (0.7-4.9); Basophils % 0.6 % (0-1.3); Hematocrit 32.8 % (39.6-49.0); MPV 9.1 fL (7.6-11.3); RBC Red Blood Cell Count 3.68 M/uL (4.33-5.43)
[2019-07-20 05:26] LABS: Potassium 4.7 mmol/L (3.5-5.1)
[2019-07-20] MEDS ORDERED: LEVOTHYROXINE SOD 0.05 MG TABLET ONE (06:14)
[2019-07-20] MEDS ORDERED: LEVOTHYROXINE SOD 0.1 MG TAB ONE (06:15)
[2019-07-20] MEDS ORDERED: LEVOTHYROXINE SOD 0.075 MG TAB PO SCH (06:30)
[2019-07-20] MEDS: INSULIN -REGULAR HUMAN 50 UNIT/0.5 ML ML SQ SCH (07:30)
[2019-07-20] MEDS ORDERED: CITALOPRAM 10 MG TABLET ONE (07:47)
[2019-07-20] MEDS ORDERED: PIOGLITAZONE 15 MG TAB ONE ×2 (07:59→10:39)
[2019-07-20] MEDS ORDERED: PIOGLITAZONE 15 MG TAB PO SCH (08:00)
[2019-07-20] MEDS ORDERED: FERROUS SULFATE 325 MG TAB PO ONE (08:00)
[2019-07-20] MEDS ORDERED: lisinopriL 5 MG TAB ONE (08:01)
[2019-07-20] MEDS ORDERED: METOPROLOL TAR 25 MG TAB ONE (08:01)
[2019-07-20 08:47] VITALS: O2SAT 95
[2019-07-20] MEDS: CITALOPRAM 10 MG TABLET PO SCH ×2 (09:00→10:49)
[2019-07-20] MEDS: FLECAINIDE 100 MG TAB PO SCH (09:00)
[2019-07-20] MEDS ORDERED: PIOGLITAZONE HCL 30 MG PO SCH (09:00)
[2019-07-20] MEDS ORDERED: TRAVOPROST 0.004% 2.5ML OPTH OPTH SCH (09:00)
[2019-07-20] MEDS ORDERED: HOME MED 1 EA UNK (Brimonidine Tartrate/Timolol [Combigan 0.2%-0.5% Eye Drops] 1 DROP) RIGHT EYE SCH (09:00)
[2019-07-20] MEDS ORDERED: ASPIRIN EC 81 MG TAB PO SCH (09:00)
[2019-07-20] MEDS ORDERED: FERROUS SULFATE 325 MG TAB PO SCH (09:00)
[2019-07-20] MEDS ORDERED: lisinopriL 20 MG TAB PO SCH (09:00)
[2019-07-20] MEDS ORDERED: HOME MED 1 EA UNK (Levothyroxine Sodium [Levothyroxine Sodium] 150 MCG) PO SCH (09:00)
[2019-07-20 10:18] VITALS: BP 125/64; TEMP 96.8
[2019-07-20] MEDS: METOPROLOL TAR 25 MG TAB PO SCH (10:24)
--- NOTE | 2019-07-20 10:35 | CON ---
Date of Consultation: 07/20/2019 The patient admitted on 07/19/[address] Mcdonnell's service. I saw the patient on 07/20/2019. Reason For Consultation: Chest pain. History Of Present Illness: Mr. Keller is 73, had multiple cardiac risk factors for heart disease incl uding diabetes, dyslipidemia, and hypertension. He also has a history of atrial fibrillation, for wh ich takes flecainide and Eliquis. He came in with left-sided lateral chest wall pain that he describ ed as needles sensation that would last seconds. It was nonexertional. He denied any nausea, vomiti ng, diaphoresis, PND, orthopnea, pedal edema, palpitations, or syncope. So far, he had a normal ches t x-ray and normal EKG. Echocardiogram showed mild pulmonary hypertension with normal ejection fract ion, left atrial and right atrial enlargement. He is asymptomatic this morning. Past Medical History: As stated earlier. Allergies: NONE. Review of Systems: Negative. Social History: Negative. Family History: Noncontributory. Medications: At home include metformin, Synthroid, flecainide, Crestor, lisinopril with hydrochlorot hiazide, and Eliquis. Physical Examination: General: He appears to be very pleasant, in no acute distress. Vital Signs: Stable. Afebrile. Sinus rhythm. HEENT: Negative. Neck: Supple with no bruit, lymphadenopathy, JVD, or thyromegaly. Chest: Clear to auscultation and percussion. Cardiac: Revealed a regular rhythm and rate. No murmurs, gallops, or rubs. Abdomen: Benign. Extremities: Revealed no clubbing, cyanosis, or edema. Skin: Dry and intact. Neurologic: He was nonfocal. Impression And Plan: 1.Atypical chest pain, most likely musculoskeletal. 2.Diabetes, well controlled. 3.Hypertension, well controlled. 4.Dyslipidemia, well controlled. 5.Atrial fibrillation, in sinus rhythm on flecainide and Eliquis. I would continue his present yuli men. He has had a normal EKG, normal chest x-ray, normal troponin, normal BNP. Echocardiogram showe d mild pulmonary hypertension. I think he can go home today and he has an appointment with his famil y doctor in the [facility] on Wednesday and I suggested that we have him do an outpatient stress test. From my standpoint, he can go home whenever it is okay with Dr. Mcdonnell. PAULINO/KATHY Voice ID: [id number] Report ID: [id number]
[2019-07-20] MEDS ORDERED: ASPIRIN EC 81 MG TAB PO ONE (10:36)
[2019-07-20] MEDS ORDERED: APIXABAN 5 MG TABLET ONE (10:37)
[2019-07-20] MEDS ORDERED: lisinopriL 10 MG TAB ONE (10:38)
[2019-07-20] MEDS: APIXABAN 5 MG TABLET PO SCH (10:48)
--- NOTE | 2019-07-21 02:28 | DS ---
Date of Discharge: 07/20/2019 Mechanical Systems Control Engineer: Dr. Rivera with Cardiology. Admitting Diagnoses: 1. Chest pain. 2. Diabetes mellitus type 2, insulin requiring with hyperglycemia, stable. 3. Essential hypertension, stable. 4. Mixed dyslipidemia, on statin. 5. Atrial fibrillation, currently in sinus rhythm on Eliquis. 6. Pleuritic chest pain. Discharge Diagnoses: 1. Atypical chest pain, acute coronary syndrome ruled out. 2. Diabetes mellitus type 2 with hyperglycemia. We will continue insulin. 3. Essential hypertension, stable. 4. Mixed dyslipidemia, statin. 5. Atrial fibrillation, paroxysmal. Currently in sinus rhythm. Continue Eliquis and flecainide. 6. Pleuritic chest pain, likely musculoskeletal. 7. Major depressive disorder. 8. Renal insufficiency. 9. Right bundle-branch block. 10. Hypomagnesemia. Hospital Course: Patient is a 73-year-old male who was admitted to the hospital for chest pain. Due to his multiple chronic medical conditions, he was high risk and was admitted to rule out ACS. He has diabetes, hypertension, hyperlipidemia, atrial fibrillation. He is 73. ACS was ruled out. Cardiac enzymes were negative. EKG did not show any acute ST elevation. He was seen by Cardiology, Dr. Rivera. Echocardiogram showed EF of 61%, tricuspid regurgitation, and mild pulmonary hypertension. Patient overall did well. His pain was atypical, likely related to musculoskeletal from exertion from fishing a few days prior. He was recommended to follow up with his primary arborist , , as an outpatient for stress test. He also was recommended to follow up with Pulmonology and pulmonary hypertension specialist [facility]. Overall, he did well, pain improved, and he was cleared for discharge. Physical Examination: General: Awake, alert, oriented x3. No acute distress CV: S1, S2. No murmurs. Respiratory: Moving air well bilaterally. Abdomen: Soft, nontender, nondistended. Positive bowel sounds. Extremities: No clubbing, cyanosis, edema. Neuro: Nonfocal. SA/MODL Voice ID: [id number] Report ID: [id number] ALEX
== END 2019-07-20 11:35 | disposition home or self-care (01) ==
LOC: ER 12:07 → ERHOLD 13:30 → 4TH 14:30
PROVIDERS: ADMIT Family Medicine; ATTEND Family Medicine
DX: R07.89 Other chest pain (principal); E11.65 Type 2 diabetes mellitus with hyperglycemia; I10 Essential (primary) hypertension; E78.2 Mixed hyperlipidemia; I48.0 Paroxysmal atrial fibrillation; Z79.01 Long term (current) use of anticoagulants; F32.9 Major depressive disorder, single episode, unspecified; N28.9 Disorder of kidney and ureter, unspecified; I45.10 Unspecified right bundle-branch block; E83.42 Hypomagnesemia; Z23 Encounter for immunization
CPT/HCPCS: 96365; 93005; 93306; 85025 ×2; 80048 ×2; 36415; 83735 ×2; 85610; 80061; 82947 ×3; 85379; 80076; 81003; 84484 ×3; 83880; 71045; 90471; 99285; Q2035; J3475; G0378 ×3; J2270